=== PATIENT | female | born 1970 | race Caucasian/White ===

== ENCOUNTER 2020-10-28 01:20 | Emergency (ER) | payer MEDICARE ==
[~2020-10-28] VITALS: Ht 177.8 cm; Wt 86.2 kg
== END 2020-10-28 02:45 | disposition home or self-care (01) ==
LOC: ER 01:59
DX: S80.12XA Contusion of left lower leg, initial encounter (principal); W22.8XXA Striking against or struck by other objects, initial encounter; Y93.01 Activity, walking, marching and hiking; F10.129 Alcohol abuse with intoxication, unspecified
CPT/HCPCS: 99283